=== PATIENT | male | born 1970 | race Two or more races ===

== ENCOUNTER 2024-10-22 02:39 | Emergency (ER) | payer MEDICAID, SELFPAY ==
[2024-10-22 02:40] VITALS: BMI 25.6
--- NOTE | 2024-10-22 02:50 | EKG_ITS ---
[facility] (Formerly [facility]) Test Date: 2024-10-22 Pat Name: PERICO KELSEY Department: Room: - Gender: Male Manager Pacu: : 1970 Requested By: ED Temporary Provider Order Number: [id number] Reading MD: ED Temporary Provider Measurements Intervals [place] Rate: 78 P: 35 TN: 154 QRS: 24 QRSD: 91 T: 43 QT: 365 QTc: 418 Interpretive Statements SINUS RHYTHM No previous ECG available for comparison /store/S0/[id number]
[2024-10-22 02:52] VITALS: BP 144/81; PULSE 80; RESP 18; TEMP 37.1; O2SAT 98
--- NOTE | 2024-10-22 03:27 | PC.NURSE ---
NOT A STROKE ALERT PER PA OWENS.
[2024-10-22] MEDS: ONDANSETRON INJ 2 MG/ML INJ 2 ML 4 MG IM (04:14)
[2024-10-22 04:18] VITALS: BP 129/79; PULSE 69; RESP 17; TEMP 36.8; O2SAT 98
--- NOTE | 2024-10-22 04:47 | EDNOTE_ITS ---
<Statement entered by Shania Gleason MD - 10/22/24 05:22> As co-signing physician, I was present and available for consult prn. I concur with the plan and care as documented by the midlevel provider. 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 6 hours ago, patient woke up with some CP and LUE paresthesia. Then CP resolved prior to arrival in ED, but patient had head/facial tingling. Possibly blurry vision and dizziness, but patient denies slurred speech, AMS and seizures. Last night prior to going to sleep, patient took a tea containing marijuana for the first time. Patient has been more stressed from work lately, but denies SI/HI. Limitations: no limitations Related Data Home Medications ?Medication ?Instructions ?Recorded ?Confirmed levothyroxine 100 mcg tablet 100 mcg PO QDAY 12/16/18 12/16/18 Previous Rx's ?Medication ?Instructions ?Recorded azithromycin 500 mg tablet See Rx Instructions PO .COM PLEX #6 12/20/21 tabs ipratropium 0.5 mg-albuterol 3 mg 3 ml inhalation QID PRN shortness 12/20/21 (2.5 mg base)/3 mL nebulization of breath or wheezing #90 mL soln Allergies Allergy/AdvReac Type Severity Reaction Status Date / Time No Known Allergies Allergy Verified 10/22/24 02:40 Review of Systems Review of Systems Systems Reviewed: All systems reviewed, normal except as documented Constitutional Constitutional: Reports system reviewed and no additional complaints, except as documented, Denies fever(s) and Denies headache(s) Eyes Eyes: Reports as per HPI and Reports blurry vision ENT Ears, Nose, Mouth, and Throat: Reports as per HPI, Denies disequilibrium, Denies headache(s) and Reports vertigo Cardiovascular Cardiovascular: Reports system reviewed and no additional complaints, except as documented, Reports as per HPI, Reports chest pain and Denies dyspnea Respiratory Respiratory: Reports system reviewed and no additional complaints, except as documented, Denies cough and Denies dyspnea Gastrointestinal Gastrointestinal: Reports system reviewed and no additional complaints, except as documented, Denies abdominal pain, Denies nausea and Denies vomiting Musculoskeletal Musculoskeletal: Reports tingling Neurologic Neurologic: Reports system reviewed and no additional complaints, except as documented, Reports as per HPI, Denies confusion, Denies disequilibrium, Denies headache(s), Reports tingling and Reports vertigo Psychiatric Psychiatric: Denies confusion Past Medical History Past Medical History CARDIAC: Negative Congestive Heart Failure RESPIRATORY: Negative Chronic Obstructive Pulmonary Disease (COPD) GENITOURINARY: Negative Renal Disease ENDOCRINE: Positive Hypothyroidism; Negative Diabetes Mellitus Type 1 or Diabetes Mellitus Type 2 Social History SMOKING STATUS: Never smoker SUBSTANCE USE: does not use ED Exam General Limitations: Present no limitations General appearance: Present alert and in no apparent distress Head Head exam: Present atraumatic Eye Eye exam: Present normal appearance, PERRL and EOMI ENT ENT exam: Present normal exam, normal oropharynx and mucous membranes moist Neck Neck exam: Present normal inspection, full ROM and trachea midline Chest Chest inspection: Present normal inspection and symmetric chest wall rise Respiratory Respiratory exam: Present normal lung sounds bilaterally Cardiovascular Cardiovascular exam: Present regular rate, normal rhythm and normal heart sounds Abdominal Exam Abdominal exam: Present soft and normal bowel sounds Extremities Exam Extremities exam: Present normal inspection and full ROM Back Exam Back exam: Present normal inspection and full ROM Neurological Exam Neurological exam: Present alert, oriented X3 and CN II-XII intact Psychiatric Psychiatric exam: Present normal affect and normal mood Skin Skin exam: Present warm, dry, intact and normal color Course Quality Measures none Orders Category Date Time Status EKG (ED ONLY) *Do not use* NOW Care 10/22/24 02:50 Completed EKG (ED Only) Stat Exams 10/22/24 02:50 Draft Ondansetron Inj [Zofran Inj] Med 10/22/24 03:58 Discontinued 4 mg IM X1 ONE Vital Signs Vital signs: Vital Signs Temperature 98.8 F 10/22/24 02:52 Pulse Rate 80 10/22/24 02:52 Respiratory Rate 18 10/22/24 02:52 Blood Pressure 144/81 H 10/22/24 02:52 Pulse Oximetry (%) 98 10/22/24 02:52 Oxygen Delivery Method Room Air 10/22/24 02:52 O2 at 98% on RA and WNLs Neuro Symptoms / Deficit MDM Narrative MDM Narrative:: 53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 6 hours ago, patient woke up with some CP and LUE paresthesia. Then CP resolved prior to arrival in ED, but patient had head/facial tingling. Possibly blurry vision and dizziness, but patient denies slurred speech, AMS and seizures. Last night prior to going to sleep, patient took a tea containing otis carrillo for the first time. Patient has been more stressed from work lately, but denies SI/HI. Physical exam reveals normal pupil response and EOM. CN II-XII grossly intact. Normal WOB. Gait normal. Speech normal. Patient is afebrile, calm, and alert. EKG is NSR. BS 124. During observation period in ED, patient did have 1 episode of N/V. Zofran was given and N/V resolved. Patient felt better after 2 hours observation. Paresthesia and blurry vision have also resolved. Repeat exam reveals CN II-XII grossly still intact. Normal gait and speech. Symptoms likely due to marijuana adverse effect. Patient data External records reviewed:: [facility] previous records Clinical information provided by:: patient Social determinants that could affect healthcare access:: none Patient has the following chronic illnesses:: Valley Fever and hypothyroidism How is presenting disease/condition affected by chronic disease/condition?: uneffected by Evaluation data The following diagnostics were reviewed and interpreted by me:: lab results and EKG tracing(s) Lab and/or radiology exams considered but not ordered:: ordered Interpretation Summary: above Medications / Prescriptions Medications or Prescriptions considered but not ordered:: ordered Medication administrations:: Medication Administration History Discontinued Medications Ondansetron HCl (Ondansetron Inj 2 Mg/Ml Inj 2 Ml) 4 mg IM X1 ONE; Protocol Stop: 10/22/24 03:59 Last Admin: 10/22/24 04:14 Dose: 4 mg Documented By: above Consultations Consultation(s) initiated? (list below): No Diagnosis Neuro Differential Diagnosis: carpal tunnel syndrome, convulsions, delirium, subarachnoid hemorrhage, peripheral neuropathy, cerebrovascular accident, multiple sclerosis, transient cerebral ischemia and other (marijuana/drug adverse reaction) Most likely diagnosis given after review of the tests above:: marijuana/drug adverse reaction Admission Indicated Admission indicated?: not indicated Admission Request Was there a request for admission?: No Disposition Plan Disposition Plan: Discharge Discharge Attestation Discharge Attestation: The patient and all family members were given an opportunity to ask questions and understood the discharge instructions. Discharge instructions specifically effects, indications for sooner follow up or return to the emergency department, and the expected course of current diagnosis. Patient condition: Stable Discharge Plan Plan Patient Disposition: HOME (Self Care) Discharge Disposition comment: Stable Prescriptions/Referrals Prescriptions/Med Rec: No Action levothyroxine 100 mcg Tablet 100 mcg PO QDAY azithromycin 500 mg tablet See Rx Instructions .ROUTE .COMPLEX Qty: 6 0RF Rx Instructions: take 500 mg today (day 1), then 250 mg for 4 days (days 2-5) ipratropium-albuterol 0.5 mg-3 mg(2.5 mg base)/3 mL solution for nebulization 3 ml inhalation QID PRN (Reason: shortness of breath or wheezing) Qty: 90 0RF Referrals: Aravind Elliott MD [Primary Care Provider] - In 1 week Problem List Clinical Impression: Adverse reaction to cannabis Patient/Caregiver Discharge Instructions Education Materials: ED Drug Reaction, Other Additional Instructions: Please follow-up with PCP within 24-48 hours and return immediately if symptoms worsen. Print Language: Micronesian Stand Alone Forms: Patient Portal Info Letter AKHIL/JOHN Supervising Physician AKHIL/JOHN Supervising Physician: Dr. Gleason
== END 2024-10-22 04:53 | disposition home or self-care (01) ==
PROVIDERS: Emergency Provider Emergency Medicine; PCP Family Medicine
DX: R07.9 Chest pain, unspecified (principal); T40.715A Adverse effect of cannabis, initial encounter; E03.9 Hypothyroidism, unspecified; R20.2 Paresthesia of skin
CPT/HCPCS: 93005; 96372; 99283; J2405